=== PATIENT | female | born 1945 | race Caucasian/White ===

== ENCOUNTER 2016-09-28 10:49 | Emergency (ER) | payer MEDICARE, BC ==
[2016-09-28] MEDS ORDERED: NORMAL SALINE 500 ML IV ONE (10:55)
--- NOTE | 2016-09-28 10:58 | ER Document Report ---
ED Syncope and Near Syncope - General Stated Complaint: WEAKNESS Time Seen by Provider: 09/28/16 10:54 Mode of Arrival: Medic Information source: Patient, Relative Notes: This is a 71-year-old female who presents via EMS after a syncopal episode at [facility]. Patient states that she felt fine upon awakening this morning. While seated at [facility] she began to feel very nauseated and lightheaded. Family reports that she stood up, "turned white" and then fainted and fell to the floor. They are concerned that she may have hit her head. Family reports a period of unconsciousness of less than 1 minute. No witnessed seizure activity. No bowel or bladder incontinence. Patient arrives alert and oriented complaining of only nausea and lightheadedness. She denies any chest pain or palpitations. Pateint denies recent illness. She states she saw her PCP last week for physical. She denies cardiac disease history. She states that she had an episode last year of syncope at [facility], but that she could feel it coming on, and states today she had no warning. - Related Data Allergies/Adverse Reactions: erythromycin base Allergy (Verified 09/28/16 12:48) Sulfa (Sulfonamide Antibiotics) Allergy (Verified 09/28/16 12:48) Past Medical History - General Information source: Patient, Relative - Social History Smoking Status: Unknown if Ever Smoked Frequency of alcohol use: None Drug Abuse: None Family History: Reviewed & Not Pertinent - Past Medical History Cardiac Medical History: Reports: Hx Hypercholesterolemia Review of Systems - Review of Systems -: Yes ROS unobtainable due to patient's medical condition Physical Exam - Vital signs Vitals: Resp BP Pulse Ox 12 137/86 H 97 09/28/16 10:52 09/28/16 10:52 09/28/16 10:52 - Notes Notes: PHYSICAL EXAMINATION: GENERAL: Ill appearing, pale, well-nourished and appears uncomfortable secondary to nausea but no acute distress, pleasant and conversant HEAD: Atraumatic, normocephalic. EYES: Pupils equal round and reactive to light, extraocular movements intact, sclera anicteric, conjunctiva are normal. ENT: nares patent, oropharynx clear without exudates. Moist mucous membranes. NECK: Normal range of motion, supple without lymphadenopathy LUNGS: Breath sounds clear to auscultation bilaterally and equal. No wheezes rales or rhonchi. HEART: Regular rate and rhythm without murmurs ABDOMEN: Soft, nontender, normoactive bowel sounds. No guarding, no rebound. No masses appreciated. EXTREMITIES: Normal range of motion, no pitting or edema. No cyanosis. NEUROLOGICAL: Cranial nerves grossly intact. Normal speech. No gross focal motor or sensory deficits PSYCH: Normal mood, normal affect. SKIN: Warm, Dry, normal turgor, no rashes or lesions noted. Course - Re-evaluation Re-evalutation: 09/28/16 11:25 Patient noted to have several long pauses on rhythm strip. This appears to be a slow A. fib. Patient has been symptomatic with intermittent nausea and decreased mental status. Patient is in need of pacemaker. The transcutaneous pacer pads are on the patient at this point she has responded to 0.5 atropine. HR 70's, BP 120's/80's 09/28/16 11:[address] Charlton at [facility] who accepts pt in transfer. Air transport not available at this time secondary to weather. 09/28/16 11:[address] Garcia who will evaluate pt in ER here 09/28/16 11:57 Dr. Garcia in to evaluate pt. Pateint has had intermittent complete heart block. Dr Garcia recommends Second dose Atropine. 09/28/16 12:09 Air transport now available and enroute. Pt alert and conversant, HR in 60-70's , BP has remained stable - Vital Signs Vital signs: Temp Pulse Resp BP Pulse Ox 98.2 F 19 111/73 99 09/28/16 12:43 09/28/16 12:30 09/28/16 12:30 09/28/16 12:30 - Laboratory Result Diagrams: 09/28/16 10:50 09/28/16 10:50 Laboratory results interpreted by me: 09/28/16 09/28/16 10:50 10:50 RDW 15.3 H Chloride 109 H BUN 26 H Est GFR (Non-Af Amer) 59 L Glucose 130 H - EKG Interpretation by Me Additional EKG results interpreted by me: 09/28/16 10:59 EKG at 1057 demonstrates sinus bradycardia with a rate of 56. There is a first degree AV block. One PVC. No ST segment elevation or depression. No prior EKG for comparison. Critical Care Note - Critical Care Note Total time excluding time spent on procedures (mins): 40 - minutes of critical care time spent in direct contact evaluating and reevaluating the patient, treating symptoms, reviewing labs and studies and speaking with family and consultants excluding any procedures Discharge - Discharge Clinical Impression: Syncope and collapse, Complete heart block, transient Condition: Critical Disposition: [facility] Referrals: IMAN MARTIN MD [Primary Care Provider] - Follow up as needed
[2016-09-28 11:08] LABS: ABSOLUTE EOSINOPHILS # (AUTO) 0.2 10^3/uL (0.0-0.6); ABSOLUTE LYMPHOCYTES (AUTO) 2.7 10^3/uL (0.5-4.7); ABSOLUTE MONOCYTES (AUTO) 0.5 10^3/uL (0.1-1.4); BASOPHILS % (AUTO) 0.5 % (0-2); EOSINOPHILS % (AUTO) 3.3 % (0-6); HEMATOCRIT 38.1 % (36.0-47.0); HEMOGLOBIN 12.2 g/dL (12.0-15.5); HGB HCT DIFFERENCE -1.5; LYMPHOCYTES % (AUTO) 41.7 % (13-45); MEAN CORPUSCULAR HEMOGLOBIN 29.2 pg (27.0-33.4); MEAN CORPUSCULAR HGB CONC 32.1 g/dL (32.0-36.0); MEAN CORPUSCULAR VOLUME 91 fl (80-97); MONOCYTES % (AUTO) 7.7 % (3-13); RED BLOOD COUNT 4.19 10^6/uL (3.72-5.28); RED CELL DISTRIBUTION WIDTH 15.3 % (11.5-14.0); SEGMENTED NEUTROPHILS % (AUTO) 46.8 % (42-78); WHITE BLOOD COUNT 6.5 10^3/uL (4.0-10.5)
[2016-09-28 11:24] LABS: ALANINE AMINOTRANSFERASE 28 U/L (9-52); ALBUMIN 3.6 g/dL (3.5-5.0); ALKALINE PHOSPHATASE 40 U/L (38-126); ANION GAP 9 (5-19); ASPARTATE AMINO TRANSFERASE 31 U/L (14-36); BILIRUBIN,DIRECT 0.3 mg/dL (0.0-0.4); BILIRUBIN,TOTAL 0.8 mg/dL (0.2-1.3); BLOOD UREA NITROGEN 26 mg/dL (7-20); CALCIUM 9.2 mg/dL (8.4-10.2); CARBON DIOXIDE 25 mmol/L (22-30); CHLORIDE 109 mmol/L (98-107); CREATINE KINASE 57 U/L (30-135); CREATININE RESULT 0.93 mg/dL (0.52-1.25); GLUCOSE 130 mg/dL (75-110); POTASSIUM 4.7 mmol/L (3.6-5.0); SODIUM 143.4 mmol/L (137-145); TOTAL PROTEIN 6.3 g/dL (6.3-8.2)
[2016-09-28 11:39] LABS: CREATINE KINASE MB 0.51 ng/mL (<4.55)
[2016-09-28 11:41] LABS: TROPONIN I < 0.012 ng/mL
[2016-09-28] MEDS ORDERED: NORMAL SALINE 1000 ML 1,000 ML IV ONE (11:56)
[2016-09-28] MEDS ORDERED: ATROPINE SULFATE INJ 0.4 MG/1 ML VIAL IV ONE (11:57)
[2016-09-28 12:36] VITALS: BP 111/73
--- NOTE | 2016-09-28 13:11 | PDOC CONSULTATION ---
Consultation Consult Date: 09/28/16 Attending physician:: HEIDI SCOTT Consult reason:: Complete heart block and symptomatic bradycardia History of Present Illness Admission Date/PCP: IMAN MARTIN MD Patient complains of: Syncope and near syncope History of Present Illness: ROBBY BROWN is a 71 year old female who presents via EMS after a syncopal episode at [facility]. Patient states that she felt fine upon awakening this morning. While seated at [facility] she began to feel very nauseated and lightheaded. Family reports that she stood up, "turned white" and then fainted and fell to the floor. They are concerned that she may have hit her head. Family reports a period of unconsciousness of less than 1 minute. No witnessed seizure activity. No bowel or bladder incontinence. Patient arrives alert and oriented complaining of only nausea and lightheadedness. She denies any chest pain or palpitations. Pateint denies recent illness. She states she saw her PCP last week for physical. She denies cardiac disease history. She states that she had an episode last year of syncope at [facility], but that she could feel it coming on, and states today she had no warning. While being monitored in the emergency room, she was noted to have asystole for up to 15 seconds long. Rhythm strip shows complete heart block. Patient subsequently received atropine 0.5 mg and had received 1 L of normal saline bolus by EMS and 0.5 L of normal saline bolus in the ER. The ER physician had already talked to [facility] about transferring this patient for further evaluation and possible need for pacemaker. However I was called by the ER physician as they were expecting some delay in transfer because of transportation issues and she wanted me to evaluate this patient for temporary pacemaker. I did confirm the EKG rhythm showing complete heart block with narrow complex escape. Patient also noted to have intermittent high-grade AV block. Patient as noted above has a prior history of syncopal spell but this time it apparently happened without much warning. She is however noted intermittent nausea while being in the ER. Patient is noted to be drowsy and lethargic at times of severe bradycardia. I did talk to the patient about temporary pacemaker that in fact called the unit to arrange for it but it seems in the meantime the [facility] related to the nurses in the ER that they are able to get her clinically by air transport. Also by this time patient 's heart rate was noted to have improved in the high 60s and low 70s with one-to -one conduction, occasional VPCs. I did briefly talk about putting in a transvenous pacemaker but it was felt that since patient was more stable, and that since she is small built with thin chest wall, transcutaneous pacemaker was set in the base without any difficulty in case the need arises. I therefore decided that a transvenous pacemaker will not be needed but feel that she still would benefit from transfer to tertiary care for evaluation for permanent pacemaker placement. Past Medical History Cardiac Medical History: Reports: Hyperlipidema Musculoskeltal Medical History: Reports: Other - Herniated disc in the back Past Surgical History Past Surgical History: Reports: None - None significant reported by the patient Social History Information Source: Patient Smoking Status: Never Smoker Frequency of Alcohol Use: Rare Hx Recreational Drug Use: No Drugs: None - Advance Directive Resuscitation Status: Full Code - Patient children are surrogate decision maker Family History Family History: Reviewed & Not Pertinent Parental Family History Reviewed: Yes Children Family History Reviewed: Yes Sibling(s) Family History Reviewed.: Yes Medication/Allergy Allergies/Adverse Reactions: erythromycin base Allergy (Verified 09/28/16 12:48) Sulfa (Sulfonamide Antibiotics) Allergy (Verified 09/28/16 12:48) Review of Systems Review of Systems: Please see history of present illness and past medical history as wall. Constitutional: No fever or chills reported. Head : No recent chronic headaches, recent head injury. Eyes: No recent eye pain, diplopia, redness, discharge, acute visual changes. Ears: No recent chronic ear pain, acute hearing loss, ear discharge. Oral cavity: No recent ulcerations, bleeding, oral cavity discomfort. Neck: No recent acute neck pain reported. Hematologic: No recent easy bruising or bleeding or hematologic malignancy reported. Lymphatic: No recent lymphatic malignancy, chronic lymphadenopathy reported yet Cardiovascular system review: See history of present illness. Respiratory system review: No recent chronic cough, hemoptysis, blood clots in the lungs reported. Mild Shortness of breath on exertion Gastrointestinal system review: Negative for any recent acute or chronic abdominal pain, hematemesis, melena, recent change in bowel habits. Genitourinary system review: No recent acute or chronic hematuria, flank pain, UTI etc. reported. Skin system review: Negative for any recent abnormal bruising, no rash, no pruritus reported. Neurologic: No prior history of strokes, mini strokes, seizure disorder. Psychologic: No history of major psychosis or major depression reported. Musculoskeletal: Minor aches and pains reported. No acute joint swelling reported. Intermittent back pain. Endocrine: No recent polyuria, polydipsia, recent heat or cold intolerance. Physical Exam Vital Signs: Temp Pulse Resp BP Pulse Ox 98.2 F 19 111/73 99 09/28/16 12:43 09/28/16 12:30 09/28/16 12:30 09/28/16 12:30 Exam: GENERAL: well-nourished and in no acute distress. Alert and oriented x3 HEAD: Atraumatic, normocephalic. EYES: Pupils equal round and reactive to light, extraocular movements intact, sclera anicteric, conjunctiva are normal. ENT: TMs normal, nares patent, oropharynx clear without exudates. Moist mucous membranes. No oral ulcerations or bleeding gums noted NECK: supple without lymphadenopathy. Trachea is central. No cervical or axillary lymphadenopathy noted. Carotids are 2+, JVD WNL LUNGS: Respiration seems nonlabored, no significant accessory muscle action noted. Breath sounds clear to auscultation bilaterally and equal noted. No wheezes rales or rhonchi noted. No significant dullness noted on percussion. CHEST: Palpation of the chest wall shows no significant chest wall tenderness. No other significant abnormalities noted. HEART: [place] [employer], No PSH, 1/6 KAREN aortic area, 1/6 griffin systolic murmur mitral area, no rubs, no gallops. ABDOMEN: Soft, no significant tenderness appreciated, normoactive bowel sounds. No guarding, no rebound. No rigidity noted . No masses appreciated. EXTREMITIES: Pedal pulses are 1-2+, no calf tenderness noted. No clubbing or cyanosis. Negative pedal edema noted NEUROLOGICAL: Focused neurological exam showed no significant neurologic deficit. Normal speech, no focal weakness appreciated. PSYCH: Normal mood, normal affect. Judgment and insight within normal limits. SKIN: No significant ecchymosis, rash, ulcerations or signs of pruritus noted. MUSCULOSKELETAL EXAM: No significant joint swelling noted. Results Laboratory Results: 09/28/16 10:50 09/28/16 10:50 09/28/16 09/28/16 09/28/16 10:50 10:50 10:50 WBC 6.5 RBC 4.19 Hgb 12.2 Hct 38.1 MCV 91 MCH 29.2 MCHC 32.1 RDW 15.3 H Plt Count 200 Seg Neutrophils % 46.8 Lymphocytes % 41.7 Monocytes % 7.7 Eosinophils % 3.3 Basophils % 0.5 Absolute Neutrophils 3.0 Absolute Lymphocytes 2.7 Absolute Monocytes 0.5 Absolute Eosinophils 0.2 Absolute Basophils 0.0 Sodium 143.4 Potassium 4.7 Chloride 109 H Carbon Dioxide 25 Anion Gap 9 BUN 26 H Creatinine 0.93 Est GFR ( Amer) > 60 Est GFR (Non-Af Amer) 59 L Glucose 130 H Calcium 9.2 Total Bilirubin 0.8 AST 31 ALT 28 Alkaline Phosphatase 40 Total Protein 6.3 Albumin 3.6 TSH 0.73 09/28/16 09/28/16 10:50 10:50 Creatine Kinase 57 CK-MB (CK-2) 0.51 Troponin I < 0.012 EKG Comments: Available rhythm strip showed complete heart block and high-grade AV block. No acute ST segment changes are noted on conducted QRS. QRS is noted to be narrow complex. Impressions: Chest X-Ray 09/28/16 11:02 IMPRESSION: NO ACUTE RADIOGRAPHIC FINDING IN THE CHEST. Assessment & Plan - Diagnosis (1) Complete heart block, transient Is this a current diagnosis for this admission?: Yes (2) Syncope and collapse Is this a current diagnosis for this admission?: Yes (3) Dyslipidemia Is this a current diagnosis for this admission?: Yes - Notes Notes: Patient noted to have complete heart block. However escape QRS complexes are narrow. Patient likely to respond to IV atropine which was given. Patient also may respond to dobutamine drip. This is back up. Patient has a backup transcutaneous external pacemaker. Patient may be slightly volume depleted. Recommend giving IV atropine additional dose and also IV fluids. At this point as noted in HPI, she is more stable therefore temporary pacemaker by transvenous insertion is on hold. Patient also being transferred to tertiary care for further evaluation. There is a high likelihood that she would end up needing permanent pacemaker but small possibility exists that this could all be vagal stimulation related as patient does complain of some nausea. Patient may have a malignant variety of neurocardiogenic syncope and near syncope therefore still may need permanent pacemaker. As noted above patient has past history of syncope. Have discussed that I will be happy to follow her as an outpatient if she decides to follow with me. - Time Time Spent: 30 to 50 Minutes - I was at the bedside for most of the time. Medications reviewed and adjusted accordingly: Yes - No changes made.
--- NOTE | 2016-09-28 17:05 | EKG REPORT ---
SEVERITY:- ABNORMAL ECG - SINUS RHYTHM VENTRICULAR TRIGEMINY FIRST DEGREE AV BLOCK : Confirmed by: Eliza Petty MD 28-Sep-2016 17:04:32
--- NOTE | 2016-09-28 17:06 | EKG REPORT ---
SEVERITY:- ABNORMAL ECG - SINUS RHYTHM FIRST DEGREE AV BLOCK BORDERLINE RIGHT AXIS DEVIATION : Confirmed by: Eliza Petty MD 28-Sep-2016 17:05:22
--- NOTE | 2016-09-28 17:06 | EKG REPORT ---
SEVERITY:- ABNORMAL ECG - ATRIAL FIBRILLATION VENTRICULAR PREMATURE COMPLEX LOW VOLTAGE THROUGHOUT BORDERLINE T ABNORMALITIES, DIFFUSE LEADS : Confirmed by: Eliza Petty MD 28-Sep-2016 17:05:17
== END 2016-09-28 12:48 | disposition short-term general hospital (02) ==
LOC: ER 10:49
DX: I44.2 Atrioventricular block, complete (principal); R55 Syncope and collapse; R53.1 Weakness; W19.XXXA Unspecified fall, initial encounter
CPT/HCPCS: 93005; 99291; 96361; 96374; 36415; 82553; 82550; 84443; 85025; 80053; 84484; 71010; 93010; J0461; J7030; J7040